=== PATIENT | male | born 1990 | race American Indian/Alaskan Native ===

== ENCOUNTER 2021-06-18 19:25 | Emergency (ER) | payer BC ==
[2021-06-18] MEDS ORDERED: Ketorolac 15 MG/ML SDV IVPUSH ONE (20:30)
[2021-06-18] MEDS ORDERED: Ondansetron 4 MG/2 ML SDV IVPUSH ONE (20:31)
--- NOTE | 2021-06-18 20:51 | EDM.PDOC ---
<Angel Luis Perez Lynda - Last Filed: 06/19/21 07:35> ED HPI GENERAL MEDICAL PROBLEM - General Chief Complaint: Flank Pain Stated Complaint: LT ABD PAIN Time Seen by Provider: 06/18/21 20:15 - Related Data Allergies Allergy/AdvReac Type Severity Reaction Status Date / Time adhesive Allergy Cannot Verified 09/12/14 11:01 Remember cefaclor [From Ceclor] Allergy Cannot Verified 09/12/14 11:01 Remember Home Meds: Home Meds . [No Known Home Meds] 09/12/14 [History] Course - Re-Assessments/Exams Free Text/Narrative Re-Assessment/Exam: 06/19/21 07:51 I was contacted back by 1 call at [facility] and they can accept the patient we are waiting on the patient's Covid however. Patient's case was discussed with Dr. Rosales with urology. And then with Dr. Perez, the hospitalist who accepts the patient at [id number] however we should not proceed with arranging transfer until we know the Covid status. Departure - Departure Time of Disposition: 07:53 Disposition: DC/Tfer to [facility] 02 Clinical Impression: Ureteric colic, Left renal stone, Elevated white blood cell count - Discharge Information Referrals: Shante Mayberry NP [Primary Care Provider] - Forms: ED Department Discharge <Isacc Carballo - Last Filed: 06/20/21 01:28> ED HPI GENERAL MEDICAL PROBLEM - General Source of Information: Reports: Patient History Limitations: Reports: No Limitations - History of Present Illness INITIAL COMMENTS - FREE TEXT/NARRATIVE: Patient 31-year-old male presented to the emergency room with a complaint of left flank pain. Onset of symptoms was several hours prior to arrival. Radiation to the left groin. Patient reports nothing seems to make symptoms better or worse. He cannot find a comfortable position. Reports associated nausea without vomiting. Denies fevers. Patient reports having difficulty urinating. No blood in the urine. Denies diarrhea or constipation.\ Denies past medical history. No prior history of kidney stones. Left Flank Pain Score (Numeric/FACES): 10 Past Medical History - Past Health History Medical/Surgical History: Denies Medical/Surgical History Social & Family History - Tobacco Use Tobacco Use Status *Q: Never Tobacco User Second Hand Smoke Exposure: No - Caffeine Use Caffeine Use: Reports: Coffee - Recreational Drug Use Recreational Drug Use: No ED ROS GENERAL - Review of Systems Review Of Systems: See Below Free Text/Narrative/Comment: In addition to that documented in the HPI above, the additional ROS was obtained: Constitutional: Denies fevers or chills Eyes: Denies vision changes ENMT: Denies sore throat CV: Denies chest pain Resp: Denies SOB GI: Denies vomiting or diarrhea : Denies painful urination MSK: Denies recent trauma Skin: Denies new rashes Neuro: Denies new numbness or tingling or weakness Endocrine: Denies unexpected weight loss Heme: Denies bleeding disorders ED EXAM, RENAL/ - Physical Exam Exam: See Below Text/Narrative:: I have reviewed the triage vital signs Const: Uncomfortable in appearance writhing in bed. Otherwise, nontoxic. Well nourished, well developed, appears stated age Eyes: Pupils Equal and reactive to light bilaterally, no conjunctival injection HENT: No signs of trauma or swelling, Neck supple without meningismus CV: Regular Rate Rhythm, Warm, well-perfused extremities RESP: Unlabored respiratory effort GI: soft, non-tender, non-distended, no masses MSK: No gross deformities appreciated Skin: Warm, dry. No rashes Neuro: Alert, casino dealer II-XII grossly intact. Sensation and motor function of extr emities grossly intact. Psych: Appropriate mood and affect. Course - Vital Signs Last Recorded V/S: Last Vital Signs Temp 37.2 C 06/19/21 07:18 Pulse 92 06/19/21 09:24 Resp 25 H 06/19/21 09:24 BP 123/94 H 06/19/21 09:24 Pulse Ox 91 L 06/19/21 09:24 - Orders/Labs/Meds Labs: Laboratory Tests 06/18/21 06/18/21 06/18/21 Range/Units 20:15 20:15 21:27 WBC 18.22 H (4.23-9.07) K/mm3 RBC 5.38 (4.63-6.08) M/mm3 Hgb 15.2 D (13.7-17.5) gm/dl Hct 47.1 (40.1-51.0) % MCV 87.5 D (79.0-92.2) fl MCH 28.3 (25.7-32.2) pg MCHC 32.3 (32.2-35.5) g/dl RDW Std Deviation 44.8 H (35.1-43.9) fL Plt Count 349 H (163-337) K/mm3 MPV 10.5 (9.4-12.3) fl Neut % (Auto) 75.9 H (34.0-67.9) % Lymph % (Auto) 15.8 L (21.8-53.1) % Cowley % (Auto) 7.2 (5.3-12.2) % Eos % (Auto) 0.5 L (0.8-7.0) Baso % (Auto) 0.2 (0.1-1.2) % Neut # (Auto) 13.82 H (1.78-5.38) K/mm3 Lymph # (Auto) 2.88 (1.32-3.57) K/mm3 Cowley # (Auto) 1.31 H (0.30-0.82) K/mm3 Eos # (Auto) 0.10 (0.04-0.54) K/mm3 Baso # (Auto) 0.04 (0.01-0.08) K/mm3 Sodium 142 (136-145) mEq/L Potassium 3.9 (3.5-5.1) mEq/L Chloride 104 (98-107) mEq/L Carbon Dioxide 21 (21-32) mEq/L Anion Gap 20.9 H (5-15) BUN 20 H (7-18) mg/dL Creatinine 1.4 H (0.7-1.3) mg/dL Est Cr Clr Drug Dosing 62.09 mL/min Estimated GFR (MDRD) 60 (>60) mL/min BUN/Creatinine Ratio 14.3 (14-18) Glucose 150 H (70-99) mg/dL Lactic Acid 2.4 H* (0.4-2.0) mmol/L Calcium 9.6 (8.5-10.1) mg/dL Total Bilirubin 0.3 (0.2-1.0) mg/dL AST 29 (15-37) U/L ALT 75 H (16-63) U/L Alkaline Phosphatase 100 (46-116) U/L Total Protein 7.5 (6.4-8.2) g/dl Albumin 4.2 (3.4-5.0) g/dl Globulin 3.3 gm/dL Albumin/Globulin Ratio 1.3 (1-2) Urine Color (Yellow) Urine Appearance (Clear) Urine pH (5.0-8.0) Ur Specific Casanova (1.005-1.030) Urine Protein (Negative) Urine Glucose (UA) (Negative) Urine Ketones (Negative) Urine Occult Blood (Negative) Urine Nitrite (Negative) Urine Bilirubin (Negative) Urine Urobilinogen (0.2-1.0) Ur Leukocyte Esterase (Negative) Urine RBC (0-5) /hpf Urine WBC (0-5) /hpf Ur Squamous Epith Cells (0-5) /hpf Urine Bacteria (FEW) /hpf Urine Mucus (FEW) /hpf SARS-CoV-2 RNA (THEO) (NEGATIVE) 06/19/21 06/19/21 06/19/21 Range/Units 01:20 02:20 05:02 WBC (4.23-9.07) K/mm3 RBC (4.63-6.08) M/mm3 Hgb (13.7-17.5) gm/dl Hct (40.1-51.0) % MCV (79.0-92.2) fl MCH (25.7-32.2) pg MCHC (32.2-35.5) g/dl RDW Std Deviation (35.1-43.9) fL Plt Count (163-337) K/mm3 MPV (9.4-12.3) fl Neut % (Auto) (34.0-67.9) % Lymph % (Auto) (21.8-53.1) % Cowley % (Auto) (5.3-12.2) % Eos % (Auto) (0.8-7.0) Baso % (Auto) (0.1-1.2) % Neut # (Auto) (1.78-5.38) K/mm3 Lymph # (Auto) (1.32-3.57) K/mm3 Cowley # (Auto) (0.30-0.82) K/mm3 Eos # (Auto) (0.04-0.54) K/mm3 Baso # (Auto) (0.01-0.08) K/mm3 Sodium 141 (136-145) mEq/L Potassium 4.5 (3.5-5.1) mEq/L Chloride 104 (98-107) mEq/L Carbon Dioxide 25 (21-32) mEq/L Anion Gap 16.5 H (5-15) BUN 19 H (7-18) mg/dL Creatinine 1.4 H (0.7-1.3) mg/dL Est Cr Clr Drug Dosing 62.09 mL/min Estimated GFR (MDRD) 60 (>60) mL/min BUN/Creatinine Ratio 13.6 L (14-18) Glucose 124 H (70-99) mg/dL Lactic Acid 2.1 H* (0.4-2.0) mmol/L Calcium 8.8 (8.5-10.1) mg/dL Total Bilirubin (0.2-1.0) mg/dL AST (15-37) U/L ALT (16-63) U/L Alkaline Phosphatase (46-116) U/L Total Protein (6.4-8.2) g/dl Albumin (3.4-5.0) g/dl Globulin gm/dL Albumin/Globulin Ratio (1-2) Urine Color Yellow (Yellow) Urine Appearance Clear (Clear) Urine pH 6.5 (5.0-8.0) Ur Specific Casanova 1.025 (1.005-1.030) Urine Protein Negative (Negative) Urine Glucose (UA) Negative (Negative) Urine Ketones Negative (Negative) Urine Occult Blood Trace-lysed H (Negative) Urine Nitrite Negative (Negative) Urine Bilirubin Negative (Negative) Urine Urobilinogen 0.2 (0.2-1.0) Ur Leukocyte Esterase Negative (Negative) Urine RBC 5-10 H (0-5) /hpf Urine WBC 0-5 (0-5) /hpf Ur Squamous Epith Cells Not seen (0-5) /hpf Urine Bacteria Rare (FEW) /hpf Urine Mucus Few (FEW) /hpf SARS-CoV-2 RNA (THEO) (NEGATIVE) 06/19/21 06/19/21 Range/Units 05:02 07:30 WBC 19.51 H (4.23-9.07) K/mm3 RBC 5.28 (4.63-6.08) M/mm3 Hgb 14.8 (13.7-17.5) gm/dl Hct 46.1 (40.1-51.0) % MCV 87.3 (79.0-92.2) fl MCH 28.0 (25.7-32.2) pg MCHC 32.1 L (32.2-35.5) g/dl RDW Std Deviation 44.7 H (35.1-43.9) fL Plt Count 310 (163-337) K/mm3 MPV 10.1 (9.4-12.3) fl Neut % (Auto) 83.7 H (34.0-67.9) % Lymph % (Auto) 8.1 L (21.8-53.1) % Cowley % (Auto) 7.7 (5.3-12.2) % Eos % (Auto) 0.1 L (0.8-7.0) Baso % (Auto) 0.1 (0.1-1.2) % Neut # (Auto) 16.34 H (1.78-5.38) K/mm3 Lymph # (Auto) 1.58 (1.32-3.57) K/mm3 Cowley # (Auto) 1.50 H (0.30-0.82) K/mm3 Eos # (Auto) 0.02 L (0.04-0.54) K/mm3 Baso # (Auto) 0.02 (0.01-0.08) K/mm3 Sodium (136-145) mEq/L Potassium (3.5-5.1) mEq/L Chloride (98-107) mEq/L Carbon Dioxide (21-32) mEq/L Anion Gap (5-15) BUN (7-18) mg/dL Creatinine (0.7-1.3) mg/dL Est Cr Clr Drug Dosing mL/min Estimated GFR (MDRD) (>60) mL/min BUN/Creatinine Ratio (14-18) Glucose (70-99) mg/dL Lactic Acid (0.4-2.0) mmol/L Calcium (8.5-10.1) mg/dL Total Bilirubin (0.2-1.0) mg/dL AST (15-37) U/L ALT (16-63) U/L Alkaline Phosphatase (46-116) U/L Total Protein (6.4-8.2) g/dl Albumin (3.4-5.0) g/dl Globulin gm/dL Albumin/Globulin Ratio (1-2) Urine Color (Yellow) Urine Appearance (Clear) Urine pH (5.0-8.0) Ur Specific Casanova (1.005-1.030) Urine Protein (Negative) Urine Glucose (UA) (Negative) Urine Ketones (Negative) Urine Occult Blood (Negative) Urine Nitrite (Negative) Urine Bilirubin (Negative) Urine Urobilinogen (0.2-1.0) Ur Leukocyte Esterase (Negative) Urine RBC (0-5) /hpf Urine WBC (0-5) /hpf Ur Squamous Epith Cells (0-5) /hpf Urine Bacteria (FEW) /hpf Urine Mucus (FEW) /hpf SARS-CoV-2 RNA (THEO) Negative (NEGATIVE) Meds: Medications Discontinued Medications Generic Name Dose Route Start Last Admin Trade Name Freq PRN Reason Stop Dose Admin Lactated Ringer's 1,000 mls @ 1,000 mls/hr 06/18/21 21:07 06/18/21 21:30 Ringers, Lactated IV 06/18/21 22:06 1,000 mls/hr .BOLUS ONE Administration Levofloxacin/Dextrose 750 mg/ 150 mls @ 100 mls/hr 06/18/21 22:06 06/18/21 22:46 Premix IV 06/18/21 23:35 100 mls/hr ONETIME ONE Administration Sodium Chloride Confirm 06/18/21 23:08 06/19/21 00:03 Normal Saline Administered 06/18/21 23:09 Not Given Dose 100 mls @ as directed .ROUTE .STK-MED ONE Lidocaine HCl 12 ml/ Sodium 112 mls @ 600 mls/hr 06/18/21 23:30 06/19/21 00:00 Chloride .XX 06/18/21 23:41 Not Given ONETIME ONE Lactated Ringer's 1,000 mls @ 1,000 mls/hr 06/18/21 23:23 06/19/21 01:42 Ringers, Lactated IV 06/19/21 00:22 Not Given .BOLUS ONE Lidocaine HCl 6 ml/ Sodium 106 mls @ 600 mls/hr 06/18/21 23:45 06/19/21 00:46 Chloride .XX 06/18/21 23:55 600 mls/hr ONETIME ONE Administration Sodium Chloride Confirm 06/19/21 00:21 06/19/21 08:18 Normal Saline Administered 06/19/21 00:22 Not Given Dose 1,000 mls @ as directed .ROUTE .STK-MED ONE Sodium Chloride 1,000 mls @ 999 mls/hr 06/19/21 00:30 06/19/21 00:35 Normal Saline IV 999 mls/hr ASDIRECTED DAPHNEY Administration Lactated Ringer's 1,000 mls @ 150 mls/hr 06/19/21 08:00 06/19/21 09:23 Ringers, Lactated IV 150 mls/hr ASDIRECTED DAPHNEY Administration Ketorolac Tromethamine 15 mg 06/18/21 20:30 06/18/21 20:38 Ketorolac 15 Mg/Ml Sdv IVPUSH 06/18/21 20:31 15 mg ONETIME ONE Administration Ketorolac Tromethamine 15 mg 06/19/21 06:11 06/19/21 07:17 Ketorolac 15 Mg/Ml Sdv IVPUSH 06/19/21 06:12 15 mg ONETIME ONE Administration Lidocaine HCl 12 ml 06/18/21 22:51 06/19/21 00:03 Lidocaine 1% 10 Ml Mdv .XX 06/18/21 22:52 Not Given ONETIME ONE Lidocaine HCl Confirm 06/18/21 23:23 06/19/21 00:00 Lidocaine 1% 30 Ml Sdv Administered 06/18/21 23:24 Not Given Dose 30 ml .ROUTE .STK-MED ONE Lidocaine HCl Confirm 06/18/21 23:26 06/19/21 00:00 Lidocaine 2% 100 Mg/5 Ml Syringe Administered 06/18/21 23:27 Not Given Dose 100 mg .ROUTE .STK-MED ONE Lidocaine HCl Confirm 06/18/21 23:28 06/18/21 23:59 Lidocaine 2% 100 Mg/5 Ml Syringe Administered 06/18/21 23:29 Not Given Dose 100 mg .ROUTE .STK-MED ONE Morphine Sulfate 6 mg 06/18/21 21:04 06/18/21 21:30 Morphine 4 Mg/Ml Syringe IVPUSH 06/18/21 21:05 6 mg ONETIME ONE Administration Morphine Sulfate 4 mg 06/18/21 22:05 06/18/21 22:47 Morphine 4 Mg/Ml Syringe IVPUSH 06/18/21 22:06 4 mg ONETIME ONE Administration Morphine Sulfate 4 mg 06/19/21 02:06 06/19/21 03:31 Morphine 4 Mg/Ml Syringe IVPUSH 06/19/21 02:07 4 mg ONETIME ONE Administration Morphine Sulfate 4 mg 06/19/21 09:08 06/19/21 09:17 Morphine 4 Mg/Ml Syringe IVPUSH 06/19/21 09:09 4 mg ONETIME ONE Administration Ondansetron HCl 4 mg 06/18/21 20:31 06/18/21 20:39 Ondansetron 4 Mg/2 Ml Sdv IVPUSH 06/18/21 20:32 4 mg ONETIME ONE Administration - Re-Assessments/Exams Free Text/Narrative Re-Assessment/Exam: 06/19/21 23:12 Consult is with urology at [facility] in [place]. I spoke with Dr. Oliver no understands there is a lack of bed availability within the entire state including his hospital system. He recommended continued current management with the IV antibiotics have already given him pain control. He did recommend a repeat set of laboratory tests in the morning to see if leukocytosis had improved. He believes the patient would be a good candidate for stent placement but unfortunately is not able to accept the patient for admission given bed availability. 06/19/2021 06:00 Patient is requesting additional pain medication. His CBC demonstrates leukocytosis of 19,500. However, his urinalysis does not appear to show any evidence of infection. We are still awaiting bed availability for transfer. He was updated of this and informed of current status. Sepsis Event Note (ED) - Evaluation Sepsis Screening Result: No Definite Risk
[2021-06-18] MEDS ORDERED: Morphine 4 MG/ML Syringe IVPUSH ONE ×2 (21:04→22:05)
[2021-06-18] MEDS ORDERED: Lactated Ringers 1,000 ML IV ONE ×2 (21:07→23:23)
[2021-06-18] MEDS ORDERED: Levofloxacin/Dextrose 5%-Water 750 MG in Premix Bag 1 BAG IV ONE (22:06)
[2021-06-18] MEDS ORDERED: Lidocaine 1% 10 ML MDV ONE (22:51)
[2021-06-18] MEDS ORDERED: Sodium Chloride 0.9% 100 ML ONE (23:08)
[2021-06-18] MEDS ORDERED: Lidocaine 1% 30 ML SDV ONE (23:23)
[2021-06-18] MEDS ORDERED: Lidocaine 2% 100 MG/5 ML Syringe ONE ×2 (23:26→23:28)
[2021-06-18] MEDS ORDERED: SODIUM CHLORIDE 0.9% ONE ×2 (23:30→23:45)
[2021-06-18] MEDS ORDERED: LIDOCAINE 1% ONE (23:30)
[2021-06-18] MEDS ORDERED: LIDOCAINE 2% ONE (23:45)
[2021-06-19] MEDS ORDERED: Sodium Chloride 0.9% 1,000 ML ONE (00:21)
[2021-06-19] MEDS ORDERED: Sodium Chloride 0.9% 1,000 ML IV SCH (00:30)
[2021-06-19] MEDS ORDERED: Morphine 4 MG/ML Syringe IVPUSH ONE ×2 (02:06→09:08)
[2021-06-19] MEDS ORDERED: Ketorolac 15 MG/ML SDV IVPUSH ONE (06:11)
--- NOTE | 2021-06-19 06:32 | CT ---
CT abdomen and pelvis Technique: Multiple axial sections were obtained from above the dome of the diaphragm inferiorly through the pubic symphysis. Intravenous and oral contrast were not utilized. Study has been performed as a pulmonary angiogram protocol. Findings: Calcification is seen within the proximal left ureter measuring about 5 mm. This finding causes proximal hydronephrosis. Both kidneys show no abnormal calcifications. No other abnormal calcifications are seen within the ureters or bladder. Visualized lung bases show nothing acute. Noncontrast appearance of the liver shows no focal abnormality. Spleen size is normal. Adrenal glands show no nodule. No abnormality is seen within the pancreas. Abdominal aorta shows no aneurysm. No retroperitoneal adenopathy is seen. No mesenteric abnormalities are seen. Appendix is seen which is normal. Diffuse colonic diverticulosis is seen with no inflammatory change of diverticulitis. No mesenteric abnormalities are seen. No pelvic mass or adenopathy is seen. Bone window settings were reviewed. No acute osseous finding is seen. Impression: 1. 5 mm calculus within the proximal left ureter causing proximal hydronephrosis compatible with an obstructing ureteral calculus. 2. No other acute abnormality is seen on the noncontrast CT study of the abdomen and pelvis. Diagnostic code #3 I agree with preliminary report from [facility], finalized on 06/18/21, 10:35 PM [employer], code 1
[2021-06-19] MEDS ORDERED: Lactated Ringers 1,000 ML IV SCH (08:00)
[2021-06-19 09:24] VITALS: BP 123/94; PULSE 92
== END 2021-06-19 09:45 ==
LOC: JD.ED 19:25
DX: N13.2 Hydronephrosis with renal and ureteral calculous obstruction (principal); D72.829 Elevated white blood cell count, unspecified; Z91.048 Other nonmedicinal substance allergy status; Z88.1 Allergy status to other antibiotic agents; Z20.822 Contact with and (suspected) exposure to COVID-19
CPT/HCPCS: 36415; 74176; 80048; 80053; 81001; 83605; 85025; 87040; 87635; 96365; 96366; 96375; 96376; 99285; J1885; J1956; J2001; J2270; J2405; J7030; J7120; U0002

== ENCOUNTER 2024-11-30 11:40 | Emergency (ER) | payer SELFPAY ==
[2024-11-30 12:00] VITALS: BP 135/101; PULSE 81
[2024-11-30] MEDS: Clindamycin Phosphate 300 MG/2 ML SDV IM ONE (12:35)
== END 2024-11-30 12:30 | disposition home or self-care (01) ==
LOC: JD.ED 11:40
DX: L03.211 Cellulitis of face (principal); K04.7 Periapical abscess without sinus; J45.909 Unspecified asthma, uncomplicated; Z86.16 Personal history of COVID-19; Z88.8 Allergy status to other drugs, medicaments and biological substances; Z79.899 Other long term (current) drug therapy
CPT/HCPCS: 99282; 99283

== ENCOUNTER 2024-12-01 08:44 | Emergency (ER) | payer MEDICAID ==
[2024-12-01 11:31] VITALS: BP 156/99; PULSE 68
== END 2024-12-01 09:45 | disposition home or self-care (01) ==
LOC: JD.ED 08:44
DX: K04.7 Periapical abscess without sinus (principal); J45.909 Unspecified asthma, uncomplicated; Z86.16 Personal history of COVID-19; Z91.048 Other nonmedicinal substance allergy status; Z88.8 Allergy status to other drugs, medicaments and biological substances; Z79.899 Other long term (current) drug therapy
CPT/HCPCS: 99282; 99283